=== PATIENT | male | born 1960 | race Caucasian/White ===

== ENCOUNTER 2021-01-13 23:24 | Emergency (ER) | payer MEDICAID, MEDICARE ==
[~2021-01-13] VITALS: Ht 180.3 cm; Wt 72.7 kg
[2021-01-13 23:31] VITALS: BP 101/60
--- NOTE | 2021-01-13 23:38 | NUR ---
Pt brought in by EMS for acute alcohol intoxication. Pt was found down outside [facility]. Pt admits to "overdosing on alcohol." Denies any illicit drugs. Tera any SI/HI. Pt is an insulin dependent diabetic. Unsure if compliant or not. Pt is fully vaccinated. Denies any acute medical complaints other than being intoxicated. No obvious injuris or trauma assessed. Pt alert and oriented x4, GCS 14.
[2021-01-14 00:04] LABS: BASOPHILS % (AUTO) 1 % (0-1); EOSINOPHILS % (AUTO) 4 % (1-7); LYMPHOCYTES % (AUTO) 16 % (22-44); MEAN CORPUSCULAR HEMOGLOBIN 29.9 pg (27.5-34.5); MEAN CORPUSCULAR HGB CONC 33.8 g/dL (33.2-36.2); MEAN PLATELET VOLUME 7.8 fL (7.4-10.4); MONOCYTES % (AUTO) 8 % (2-9); NEUTROPHILS % (AUTO) 70 % (42-75); PLATELET COUNT 329 x10^3/uL (130-400); RED BLOOD COUNT 4.73 x10^6/uL (4.38-5.82); RED CELL DISTRIBUTION WIDTH 13.6 % (9.4-14.8)
[2021-01-14 00:15] LABS: ALANINE AMINOTRANSFERASE 27 U/L (12-78); ALBUMIN 3.7 g/dL (3.4-5.0); ANION GAP 11 mmol/L (5-15); CALCIUM 7.8 mg/dL (8.5-10.1); CHLORIDE 96 mmol/L (98-107); CREATININE 0.93 mg/dL (0.7-1.3)
[2021-01-14 00:16] LABS: SALICYLATE LEVEL < 1.7 mg/dL (2.8-20.0)
[2021-01-14 00:17] LABS: ALKALINE PHOSPHATASE 45 U/L (45-117); BILIRUBIN,TOTAL 0.6 mg/dL (0.2-1.0); TOTAL PROTEIN 7.2 g/dL (6.4-8.2)
--- NOTE | 2021-01-14 00:43 | NUR ---
Pt resting comfortably at this time, in no acute signs of distress.
--- NOTE | 2021-01-14 03:39 | NUR ---
Pt not clinically sober enough for discharge at this point. Pt slurring words, has no sober ride home. States he is from [place] and is in town visiting. Unable to provide this RN with legitimate address. Will allow pt to continue to reach sobriety. Will reassess mental status and ability to get home safely again shortly.
--- NOTE | 2021-01-14 04:12 | NUR ---
Pt ambulatory to bathroom w/ steady gait.
--- NOTE | 2021-01-14 04:49 | NUR ---
CALLED CAB FOR PT.
--- NOTE | 2021-01-14 05:09 | NUR ---
Pt left without discharge paperwork. Pt was fine with this. Pt cab had arrived and pt was in a high to get back to friends hotel room, as his friend is leaving soon and pt will not have a way to obtain his wallet, ID, [place] and cell phone, all which are in said friends hotel room. Pt ambulated w/ steady gait out of the department. No PIV in place. Cab voucher given to armored cable machine operator. Pt got into cab safely.
== END 2021-01-14 05:12 | disposition home or self-care (01) ==
LOC: ED 23:30
DX: F10.129 Alcohol abuse with intoxication, unspecified (principal); I10 Essential (primary) hypertension; E11.9 Type 2 diabetes mellitus without complications; Y90.0 Blood alcohol level of less than 20 mg/100 ml
CPT/HCPCS: 36415; 80053; 80299; 80320; 80329; 85025; 99283; G0480